=== PATIENT | male | born 2000 | race Caucasian/White ===

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

== ENCOUNTER 2019-03-15 13:47 | Emergency (ER) | payer OTHER ==
[2019-03-15 13:52] VITALS: BP 108/61
[2019-03-15] MEDS ORDERED: Ketorolac INJ* 30 MG/ML 1 ML VIAL IM ONE (15:27)
--- NOTE | 2019-03-15 15:30 | ED ---
Back Pain - HPI Summary HPI Summary: This patient is a 18 year old M presenting to [facility] with a chief complaint of upper central back pain since this morning. He reports he was dancing a lot last night. Per triage, the patient rates the pain 6/10 in severity. Symptoms aggravated by movement, breathing, standing, sitting. Symptoms alleviated by nothing. Patient reports neck pain Patient denies shoulder pain. - History of Current Complaint Chief Complaint: EDBackInjuryPain Stated Complaint: BACK PAIN PER PT Time Seen by Provider: 03/15/19 14:55 Hx Obtained From: Patient Onset/Duration: Gradual Onset, Still Present Onset/Duration: Started Hours Ago Timing: Constant Severity Currently: Moderate Pain Intensity: 6 Pain Scale Used: 0-10 Numeric Aggravating Symptom(s): Movement, Other - breathing, standing, sitting Alleviating Symptom(s): Nothing Associated Signs And Symptoms: Positive: Other - neck pain - Allergies/Home Medications Allergies/Adverse Reactions: Allergies Allergy/AdvReac Type Severity Reaction Status Date / Time No Known Allergies Allergy Verified 03/15/19 13:52 PMH/Surg Hx/FS Hx/Imm Hx Endocrine/Hematology History: Denies: Hx Anticoagulant Therapy, Hx Blood Disorders Sensory History: Denies: Hx Legally Blind, Hx Deafness Opthamlomology History: Denies: Hx Legally Blind EENT History: Denies: Hx Deafness Infectious Disease History: No Infectious Disease History: Denies: Traveled Outside the [place] in Last 30 Days - Family History Known Family History: Negative: Cardiac Disease, Hypertension, Diabetes - Social History Occupation: Student Alcohol Use: Rare Hx Substance Use: Yes Substance Use Type: Reports: Marijuana Hx Tobacco Use: Yes Smoking Status (MU): Current Every Day Smoker Review of Systems Negative: Fever Positive: Other - back and neck pain All Other Systems Reviewed And Are Negative: Yes Physical Exam - Summary Physical Exam Summary: Appearance: The patient is well-nourished in no acute distress and in no acute pain. Skin: The skin is warm and dry, and skin color reflects adequate perfusion. HEENT: The head is normocephalic and atraumatic. The pupils are equal and reactive. The conjunctivae are clear and without drainage. Nares are patent and without drainage. Mouth reveals moist mucous membranes, and the throat is without erythema and exudate. The external ears are intact. The ear canals are patent and without drainage. The tympanic membranes are intact. Neck: The neck is supple with full range of motion and non-tender. There are no carotid bruits. There is no neck vein distension. Tender in para cervical. Respiratory: Chest is non-tender. Lungs are clear to auscultation and breath sounds are symmetrical and equal. Cardiovascular: Heart is regular rate and rhythm. There is no murmur or rub auscultated. There is no peripheral edema and pulses are symmetrical and equal. Abdomen: The abdomen is soft and non-tender. There are normal bowel sounds heard in all four quadrants and there is no organomegaly palpated. Musculoskeletal: Extremities are non-tender with full range of motion. There is good capillary refill. There is no peripheral edema or calf tenderness elicited. Neurological: Patient is alert and oriented to person, place and time. The patient has symmetrical motor strength in all four extremities. Cranial nerves are grossly intact. Deep tendon reflexes are symmetrical and equal in all four extremities. Psychiatric: The patient has an appropriate affect and does not exhibit any anxiety or depression. Triage Information Reviewed: Yes Vital Signs On Initial Exam: Initial Vitals Temp Pulse Resp BP Pulse Ox 98.2 F 67 16 108/61 97 03/15/19 13:49 03/15/19 13:49 03/15/19 13:49 03/15/19 13:49 03/15/19 13:49 Vital Signs Reviewed: Yes Diagnostics - Vital Signs Vital Signs Temp Pulse Resp BP Pulse Ox 03/15/19 13:49 98.2 F 67 16 108/61 97 - Laboratory Lab Statement: Any lab studies that have been ordered have been reviewed, and results considered in the medical decision making process. Re-Evaluation - Re-Evaluation First Eval Re-Evaluation Time: 15:46 Comment: Discussed plan to discharge with pt. Back Pain Course/Dx - Course Course Of Treatment: Mr. Mcbride woke up this morning with a sore neck. He does admit he was dancing wildly last night. He was mildly tender para cervically without any meningeal signs. He was nontoxic in appearance with stable vitals. I gave him a shot of ketorolac here and recommended ibuprofen and symptomatic treatment. - Diagnoses Provider Diagnoses: Neck strain Discharge ED - Sign-Out/Discharge Documenting (check all that apply): Patient Departure - Discharge Patient Received Moderate/Deep Sedation with Procedure: No - Discharge Plan Condition: Stable Disposition: HOME Patient Education Materials: Cervical Strain (ED) [facility] [facility] - 3 Days Additional Instructions: Follow up with primary care provider in 2-3 days. Recommended to take ibuprofen for pain. RETURN TO THE ED FOR ANY NEW OR WORSENING SYMPTOMS. - Billing Disposition and Condition Condition: STABLE Disposition: Home - Attestation Statements Document Initiated by Scribe: Yes Documenting Scribe: Crystal Roman Provider For Whom Ben is Documenting (Include Credential): Hector Quinn MD Scribe Attestation: Crystal Monte scribed for Hector Quinn MD on 03/15/19 at 2020. Scribe Documentation Reviewed: Yes Provider Attestation: The documentation as recorded by the Crystal villela accurately reflects the service I personally performed and the decisions made by Hector campos MD Status of Scribe Document: Viewed
== END 2019-03-15 16:05 | disposition home or self-care (01) ==
LOC: ED 13:47
DX: S16.1XXA Strain of muscle, fascia and tendon at neck level, initial encounter (principal); X58.XXXA Exposure to other specified factors, initial encounter; Y93.41 Activity, dancing; Y92.9 Unspecified place or not applicable; Z79.899 Other long term (current) drug therapy; F17.200 Nicotine dependence, unspecified, uncomplicated
CPT/HCPCS: 96372; 99282; J1885